=== PATIENT | female | born 1990 | race Caucasian/White ===

== ENCOUNTER 2018-07-05 14:23 | Emergency (ER) | payer MEDICAID ==
[2018-07-05] MEDS ORDERED: PREDNISONE 20 MG TABLET PO ONE (15:07)
[2018-07-05] MEDS ORDERED: FAMOTIDINE INJ/PF 20 MG/2 ML SDV IV ONE (15:07)
--- NOTE | 2018-07-05 15:15 | ER Document Report ---
ED Allergic Reaction - General Stated Complaint: POSSIBLE ALLERGIC REACTION Time Seen by Provider: 07/05/18 15:07 Mode of Arrival: Medic Information source: Patient Notes: 28-year-old smoker female with no MDI developed upper eyelid swelling and itching after eating a pizza from [employer] that had sore unit which she is allergic to. She took 50 mg of Benadryl at home 15 minutes prior to arrival of EMS.. She called 911 because she felt like she started to wheeze and itching all over her body. She thinks she is getting over bronchitis because she has been wheezing some this week. - HPI Onset: This afternoon - Related Data Allergies/Adverse Reactions: peanut Allergy (Severe, Verified 04/18/16 10:45) soy Allergy (Severe, Verified 04/18/16 10:46) Cephalosporins Adverse Reaction (Severe, Verified 04/18/16 10:48) glafenine Adverse Reaction (Severe, Verified 04/18/16 10:48) Past Medical History - General Information source: Patient - Social History Smoking Status: Current Every Day Smoker Lives with: Other - 8 yo son Family History: Reviewed & Not Pertinent Pulmonary Medical History: Reports: Hx Asthma - as child Past Surgical History: Reports: Hx Cholecystectomy, Hx Orthopedic Surgery - right knee, Hx Tonsillectomy Review of Systems - Review of Systems Constitutional: No symptoms reported EENT: See HPI Cardiovascular: No symptoms reported Respiratory: See HPI Gastrointestinal: No symptoms reported Genitourinary: No symptoms reported Female Genitourinary: No symptoms reported Musculoskeletal: No symptoms reported Skin: No symptoms reported Hematologic/Lymphatic: No symptoms reported Neurological/Psychological: No symptoms reported Physical Exam - Vital signs Vitals: Resp BP Pulse Ox 23 H 119/71 93 07/05/18 14:26 07/05/18 14:26 07/05/18 14:26 Interpretation: Normal - General General appearance: Appears well, Alert In distress: None - HEENT Head: Normocephalic, Atraumatic Eyes: Other - Bilateral upper lids edema Conjunctiva: Normal Pupils: PERRL Neck: Supple. No: Lymphadenopathy Notes: Uvula is midline there is no pharyngeal swelling, no lip swelling. - Respiratory Respiratory status: No respiratory distress Chest status: Nontender Breath sounds: Normal Chest palpation: Normal - Cardiovascular Rhythm: Regular Heart sounds: Normal auscultation Murmur: No - Abdominal Inspection: Normal Distension: No distension Bowel sounds: Normal Tenderness: Nontender Organomegaly: No organomegaly - Back Back: Normal, Nontender - Extremities General upper extremity: Normal inspection, Nontender, Normal color, Normal ROM , Normal temperature General lower extremity: Normal inspection, Nontender, Normal color, Normal ROM , Normal temperature, Normal weight bearing. No: Thomas's sign - Neurological Neuro grossly intact: Yes Cognition: Normal Orientation: AAOx4 [place] Coma Scale Eye Opening: Spontaneous [place] Coma Scale Verbal: Oriented [place] Coma Scale Motor: Obeys Commands Anuj Coma Scale Total: 15 Speech: Normal Motor strength normal: LUE, RUE, LLE, RLE Sensory: Normal - Psychological Associated symptoms: Normal affect, Normal mood - Skin Skin Temperature: Warm Skin Moisture: Dry Skin Color: Normal Skin irregularity: negative: Rash Course - Re-evaluation Re-evalutation: 07/05/18 15:43 Patient states she feels like she go home the swelling in her eyelids is definitely gone down. Vital signs are stable 07/05/18 15:43 - Vital Signs Vital signs: Temp Pulse Resp BP Pulse Ox 17 115/68 94 07/05/18 15:01 07/05/18 15:00 07/05/18 15:01 Discharge - Discharge Clinical Impression: bilateral upper lid edema, Soy allergy Allergic reaction Qualifiers: Encounter type: initial encounter Qualified Code(s): T78.40XA - Allergy, unspecified, initial encounter Condition: Good Disposition: HOME, SELF-CARE Instructions: Acid-Suppressing Medication ([facility]), Use of Diphenhydramine, Food Allergy ([facility]), Inhaled Bronchodilators ([facility]), Stop Smoking ([facility]), Steroid Medication Additional Instructions: Pepcid 20 mg twice a day for a week Benadryl 25-50 mg every 4 hours for itching Prednisone 60 mg given today and you will have prednisone for 4 more days Return to the emergency room any concerns Avoid this new [employer] pizza that has soy stop smoking albuterol MDI 2 puffs every 4 hours for cough/wheeze Prescriptions: Albuterol Sulfate [Proair HFA Inhalation Aerosol 8.5 gm MDI] 2 puff IH Q3HP PRN #1 [id number] PRN Reason: Prednisone [Deltasone 20 mg Tablet] 40 mg PO DAILY #8 tablet Referrals: PRASHANT MORILLO MD [ACTIVE STAFF] - Follow up as needed
[2018-07-05 16:20] VITALS: BP 113/59
== END 2018-07-05 16:20 | disposition home or self-care (01) ==
LOC: ER 14:23
DX: T78.3XXA Angioneurotic edema, initial encounter (principal); Z91.018 Allergy to other foods
CPT/HCPCS: 99283; 96374; J7512; S0028

== ENCOUNTER 2019-10-20 14:25 | Emergency (ER) | payer SELFPAY ==
--- NOTE | 2019-10-20 15:29 | RADIOLOGY REPORT (SQ) ---
EXAM DESCRIPTION: CHEST SINGLE VIEW COMPLETED DATE/TIME: 10/20/2019 3:17 pm REASON FOR STUDY: sob COMPARISON: PA and lateral views of the chest from 12/13/2008. EXAM PARAMETERS: NUMBER OF VIEWS: One view. TECHNIQUE: An AP view of the chest was obtained. RADIATION DOSE: NA LIMITATIONS: None. FINDINGS: LUNGS AND PLEURA: No consolidation, pleural effusion or pneumothorax. MEDIASTINUM AND HILAR STRUCTURES: No mediastinal or hilar contour abnormality. HEART AND VASCULAR STRUCTURES: The cardiac silhouette and pulmonary vasculature are within normal lee its. BONES: No acute findings. HARDWARE: None in the chest. OTHER: No other finding. IMPRESSION: No acute cardiopulmonary process. TECHNICAL DOCUMENTATION: JOB ID: [id number] [employer]- All Rights Reserved Reading location - IP/workstation name: [email or web address]
[2019-10-20 15:53] LABS: ABSOLUTE BASOPHILS # (AUTO) 0.1 10^3/uL (0.0-0.2); ABSOLUTE EOSINOPHILS # (AUTO) 0.4 10^3/uL (0.0-0.6); ABSOLUTE LYMPHOCYTES (AUTO) 1.5 10^3/uL (0.5-4.7); ABSOLUTE MONOCYTES (AUTO) 0.4 10^3/uL (0.1-1.4); ABSOLUTE NEUT (AUTO) 9.2 10^3/uL (1.7-8.2); BASOPHILS % (AUTO) 0.6 % (0-2); EOSINOPHILS % (AUTO) 3.3 % (0-6); HEMATOCRIT 45.1 % (36.0-47.0); LYMPHOCYTES % (AUTO) 12.6 % (13-45); MEAN CORPUSCULAR HEMOGLOBIN 29.5 pg (27.0-33.4); MEAN CORPUSCULAR HGB CONC 33.3 g/dL (32.0-36.0); MEAN CORPUSCULAR VOLUME 88 fl (80-97); MONOCYTES % (AUTO) 3.7 % (3-13); PLATELET COUNT 264 10^3/uL (150-450); RED CELL DISTRIBUTION WIDTH 12.7 % (11.5-14.0); SEGMENTED NEUTROPHILS % (AUTO) 79.8 % (42-78); TOTAL CELLS COUNTED % (AUTO) 100 %; WHITE BLOOD COUNT 11.6 10^3/uL (4.0-10.5)
[2019-10-20 16:13] LABS: ALBUMIN 3.9 g/dL (3.5-5.0); ALKALINE PHOSPHATASE 61 U/L (38-126); ANION GAP 7 (5-19); ASPARTATE AMINO TRANSFERASE 20 U/L (14-36); BILIRUBIN,DIRECT 0.1 mg/dL (0.0-0.4); BILIRUBIN,TOTAL 0.8 mg/dL (0.2-1.3); BLOOD UREA NITROGEN 9 mg/dL (7-20); CALCIUM 9.4 mg/dL (8.4-10.2); CARBON DIOXIDE 30 mmol/L (22-30); CHLORIDE 105 mmol/L (98-107); GLUCOSE 103 mg/dL (75-110); POTASSIUM 3.7 mmol/L (3.6-5.0); TOTAL PROTEIN 7.1 g/dL (6.3-8.2)
--- NOTE | 2019-10-20 17:03 | EKG REPORT ---
SEVERITY:- BORDERLINE ECG - SINUS RHYTHM LEFT AXIS DEVIATION BORDERLINE T ABNORMALITIES, ANT-LAT LEADS BORDERLINE PROLONGED QT INTERVAL : Confirmed by: Madiha High 20-Oct-2019 17:03:40
[2019-10-20] MEDS ORDERED: IPRATROPIUM/ALBUTEROL 0.5-2.5 MG/3 ML AMPUL NEB ONE (17:24)
--- NOTE | 2019-10-20 17:27 | ER Document Report ---
ED Medical Screen (RME) - General Chief Complaint: Shortness Of Breath Stated Complaint: SHORTNESS OF BREATH Time Seen by Provider: 10/20/19 17:10 Primary Care Provider: SINDY JACINTO MD [Primary Care Provider] - Follow up as needed Information source: Patient Notes: Patient reports difficulty breathing that started yesterday. Patient does report cough and wheezing. Patient has a history of asthma and is out of asthma medications. Patient denies any fever nausea or vomiting. I have greeted and performed a rapid initial assessment of this patient. A comprehensive ED assessment and evaluation of the patient, analysis of test results and completion of the medical decision making process will be conducted by additional ED providers. TRAVEL OUTSIDE OF THE [place] IN LAST 30 DAYS: No - Related Data Allergies/Adverse Reactions: peanut Allergy (Severe, Verified 04/18/16 10:45) soy Allergy (Severe, Verified 04/18/16 10:46) Cephalosporins Adverse Reaction (Severe, Verified 04/18/16 10:48) glafenine Adverse Reaction (Severe, Verified 04/18/16 10:48) Past Medical History Pulmonary Medical History: Reports: Hx Asthma - as child Renal/ Medical History: Denies: Hx Peritoneal Dialysis Past Surgical History: Reports: Hx Cholecystectomy, Hx Orthopedic Surgery - right knee, Hx Tonsillectomy Physical Exam - Vital signs Vitals: Temp Pulse Resp BP Pulse Ox 98.2 F 80 18 111/65 94 10/20/19 15:24 10/20/19 15:24 10/20/19 15:24 10/20/19 15:24 10/20/19 15:24 - Respiratory Respiratory status: No respiratory distress Chest status: Nontender Breath sounds: Nonproductive cough, Wheezing - Early Course - Vital Signs Vital signs: Temp Pulse Resp BP Pulse Ox 98.2 F 80 18 111/65 94 10/20/19 15:24 10/20/19 15:24 10/20/19 15:24 10/20/19 15:24 10/20/19 15:24 - Laboratory Result Diagrams: 10/20/19 15:30 10/20/19 15:30 Laboratory results interpreted by me: 10/20/19 15:30 WBC 11.6 H Lymph % (Auto) 12.6 L Absolute Neuts (auto) 9.2 H Seg Neutrophils % 79.8 H Doctor's Discharge - Discharge Referrals: SINDY JACINTO MD [Primary Care Provider] - Follow up as needed
[2019-10-20] MEDS ORDERED: NORMAL SALINE 1000 ML 1,000 ML IV ONE (19:12)
--- NOTE | 2019-10-20 19:28 | ER Document Report ---
ED Respiratory Problem - General Chief Complaint: Shortness Of Breath Stated Complaint: SHORTNESS OF BREATH Time Seen by Provider: 10/20/19 17:10 Primary Care Provider: SINDY JACINTO MD [Primary Care Provider] - Follow up as needed Mode of Arrival: Medic TRAVEL OUTSIDE OF THE [place] IN LAST 30 DAYS: No - Related Data Allergies/Adverse Reactions: peanut Allergy (Severe, Verified 04/18/16 10:45) soy Allergy (Severe, Verified 04/18/16 10:46) Cephalosporins Adverse Reaction (Severe, Verified 04/18/16 10:48) glafenine Adverse Reaction (Severe, Verified 04/18/16 10:48) Past Medical History - General Information source: Patient - Social History Smoking Status: Current Every Day Smoker Family History: Reviewed & Not Pertinent Patient has suicidal ideation: No Patient has homicidal ideation: No Pulmonary Medical History: Reports: Hx Asthma - as child Renal/ Medical History: Denies: Hx Peritoneal Dialysis Past Surgical History: Reports: Hx Cholecystectomy, Hx Orthopedic Surgery - ri ght knee, Hx Tonsillectomy Physical Exam - Vital signs Vitals: Temp Pulse Resp BP Pulse Ox 98.2 F 80 18 111/65 94 10/20/19 15:24 10/20/19 15:24 10/20/19 15:24 10/20/19 15:24 10/20/19 15:24 Interpretation: Normal - General General appearance: Appears well, Alert - HEENT Head: Normocephalic, Atraumatic Eyes: Normal Pupils: PERRL - Respiratory Respiratory status: No respiratory distress, Other - Wheezing has improved after treatments nebulized treatments. Patient is resting comfortably with a sat of 96% in no distress no tachypnea tachypnea. Chest status: Nontender Breath sounds: Normal Chest palpation: Normal - Cardiovascular Rhythm: Regular Heart sounds: Normal auscultation Murmur: No - Abdominal Inspection: Normal Distension: No distension Bowel sounds: Normal Tenderness: Nontender Organomegaly: No organomegaly - Back Back: Normal, Nontender - Extremities General upper extremity: Normal inspection, Nontender, Normal color, Normal ROM, Normal temperature General lower extremity: Normal inspection, Nontender, Normal color, Normal ROM, Normal temperature, Normal weight bearing. No: Thomas's sign - Neurological Neuro grossly intact: Yes Cognition: Normal Orientation: AAOx4 Anuj Coma Scale Eye Opening: Spontaneous Anuj Coma Scale Verbal: Oriented Anuj Coma Scale Motor: Obeys Commands [place] Coma Scale Total: 15 Speech: Normal Motor strength normal: LUE, RUE, LLE, RLE Sensory: Normal - Psychological Associated symptoms: Normal affect, Normal mood - Skin Skin Temperature: Warm Skin Moisture: Dry Skin Color: Normal Course - Vital Signs Vital signs: Temp Pulse Resp BP Pulse Ox 98.2 F 80 18 111/65 94 10/20/19 15:24 10/20/19 15:24 10/20/19 15:24 10/20/19 15:24 10/20/19 15:24 - Laboratory Result Diagrams: 10/20/19 15:30 10/20/19 15:30 Laboratory results interpreted by me: 10/20/19 15:30 WBC 11.6 H Lymph % (Auto) 12.6 L Absolute Neuts (auto) 9.2 H Seg Neutrophils % 79.8 H - Diagnostic Test Radiology reviewed: Image reviewed, Reports reviewed Discharge - Discharge Clinical Impression: Asthma, Acute bronchitis Condition: Stable Disposition: HOME, SELF-CARE Prescriptions: Albuterol Sulfate [Albuterol Sulfate 5mg/1 mL] 5 mg NEB Q4 PRN #30 ml PRN Reason: Albuterol Sulfate [Proair HFA Inhalation Aerosol 8.5 gm MDI] 2 puff IH Q4H PRN #1 mdi PRN Reason: Azithromycin [Zithromax 250 mg Tablet] 250 mg PO ASDIR #6 tablet Referrals: SINDY JACINTO MD [Primary Care Provider] - Follow up as needed
[2019-10-20 21:08] VITALS: BP 108/56
== END 2019-10-20 21:07 | disposition home or self-care (01) ==
LOC: ER 14:25
DX: J20.9 Acute bronchitis, unspecified (principal); J45.909 Unspecified asthma, uncomplicated; Z91.010 Allergy to peanuts; Z91.018 Allergy to other foods; F17.200 Nicotine dependence, unspecified, uncomplicated
CPT/HCPCS: 93005; 94640; 99285; 96360; 96361; 36415; 85025; 80053; 71045; 93010; J7030; J7620